=== PATIENT | female | born 1985 | race Caucasian/White ===

== ENCOUNTER 2017-01-10 05:20 | Inpatient (IN) | payer MEDICAID ==
[2017-01-08 11:56] LABS: BASOPHILS 0.8 % (0-2); EOSINOPHILS 3.6 % (0-7); HEMATOCRIT 37.3 % (36.0-48.0); HEMOGLOBIN 12.6 g/dL (12-16); MCH 30.5 pg (26.0-34.0); MCHC 33.8 g/dL (31.0-37.0); MCV 90.3 fL (80.0-100.0); MEAN PLATELET VOLUME 10.9 fL (7.4-10.4); MONOCYTES 9.8 % (2-11); NEUTROPHILS 66.8 % (40-80); RBC 4.13 10x6/uL (4.00-5.40); RDW 13.2 % (11.5-14.5); WBC 6.3 10x3/uL (4.8-10.8)
[2017-01-08 11:57] LABS: PLATELET COUNT 241 10x3/uL (130-400)
[2017-01-08 12:19] LABS: CALC OSMOLALITY 272 mosm/kg (275-300); CALCIUM 8.9 mg/dL (8.5-10.1); CARBON DIOXIDE 27.7 mmol/L (21.0-32.0); CHLORIDE - SERUM 102 mmol/L (98-107); CREATININE - SERUM 0.7 mg/dL (0.6-1.3); GLUCOSE 83 mg/dL (74-106); POTASSIUM - SERUM 4.2 mmol/L (3.5-5.1); SODIUM 137 mmol/L (136-145); UREA NITROGEN 12 mg/dL (7-18); eGFR NON AFRICAN AMERICAN > 90 mL/min (90-120)
[2017-01-10] VITALS (10 sets, daily range): BP systolic 117–147; BP diastolic 66–88; Ht 160 cm; Wt 77.3 kg
[~2017-01-10] VITALS: Ht 160 cm; Wt 77.3 kg
[~2017-01-10 05:20] MED LIST: HYDROCODON-ACE1 EAC7 PO; KLONOPIN0.5 MG PO; ROBAXIN500 MG PO
[2017-01-10] MEDS ORDERED: XANAX0.25 MG PO (06:34)
[2017-01-10 06:46] LABS: HCG URINE NEGATIVE (NEGATIVE)
--- NOTE | 2017-01-10 11:10 | NUR ---
REC' PT BACK FROM RECOVERY POST TOTAL ABD HYST. PT TRANSFERS SELF TO BED. PT MOANING AND COMPLAINING OF PAIN THAT SHE RATES 8-9/10. REPORT REC'D FROM RECOVERY NURSE THAT PT DID RECEIVE IV DILAUDID IN RECOVERY THAT HELPED W/PAIN MOMENTARILY. POST OP V/S BEGUN. PT HAS PIV TO RT AC AREA W/LR TO INFUSE AT 125ML/HR. ABD DRESSING C/D W/VISIBLE PINK LINE NOTED. NO APPARENT BLEEDING NOTED. NELSON CATH IN PLACE W/ APPROX 300ML BLUE COLORED URINE NOTED IN NELSON AND EMPTIED AT THIS TIME. SCD WRAPS IN PLACE BILATERALLY.CONNECTED TO PUMP AT THIS TIME. PUMP TURNED ON AND FUNCTIONING. PT REQUEST ICE CHIPS. ICE CHIPS SERVED.
--- NOTE | 2017-01-10 11:30 | NUR ---
ROUNDS MADE. PT STILL W/C/O PAIN. REASSURED PT TORADOL AND INSPECTOR AIDE WILL BEGIN TO EASE PAIN. FAMILY AT BEDSIDE.
--- NOTE | 2017-01-10 12:00 | NUR ---
FAMILY AT BEDSIDE. PT REPORTS SHE IS BEGINNING TO FEELS SOME WHAT BETTER. NO NEEDS VOICED AT THISTIME.
--- NOTE | 2017-01-10 12:24 | NUR ---
POST OP VITALS COMPLETED. PT STILL C/O ABD PAIN AND FEELING THE URGE TO VOID EVEN THOUGH NELSON CATH IN PLACE W/APPROX 125ML BLOOD URINE NOTED. CATHETER REPOSITIONED. PT STILL WITH C/O. PT USING MASTER ELECTRICIAN BUTTON FREQUENTLY. SIG OTHER AT BEDSIDE. PT'S BED LOW,SIDE RAILS UP X 2. CALL LIGHT AND MASTER ELECTRICIAN BUTTON ATPT'S SIDE.
--- NOTE | 2017-01-10 13:00 | NUR ---
THIS RN TO BEDSIDE. PT APPEARS TO BE MORE COMFORTABLE. REPORTS REPOSITIONING NELSON CATH HELPED W/DISCOMFORT. I.S. PROVIDED W/TEACHING. PT PERFORMS I.S. X 3 ABLE TO PULL 1500. PT COUGHS W/POOR EFFORT. REPOSITIONS SELF IN BED FROM SIDE TO SIDE. RETURNS TO SEMI DICKERSON'S POSITION. PT DENIES NAUSEA AT THIS TIME. ICE WATER SERVED PER PT REQUEST. BREATHSOUNDS CL\=, ABD SOFT, NON DISTENDED, BOWEL SOUNDS HYPOACTIVE X 4. PT DENIES PASSING FLATUS OF YET. PT REPORTS SHE HAS EDUCATED SELF ON PROCEDURE AND RECOVERY. AGREEABLE TO NURSING INTERVENTIONS. FAMILY AT BEDSIDE. PT'S BED LOW, SIDE RAILS UPX 2. CALL LIGHT AND RN PHYSICIAN OFFICE BUTTON AT PT'S SIDE.
--- NOTE | 2017-01-10 14:00 | NUR ---
ROUNDS MADE. PT AA&O X 4. PT AND SPOUSE REPORT PT HAS PERFORMED I.S. X 3 ABLE TO PULL 1500. REPORTS CLEARING THROAT. PT W/C/O LOWER BACK PAIN. WITH ASSISTANCE FROM SPOUSE PT ROLLS SIDE TO SIDE SO A PILLOW MAY BE PLACED BENEATH HER LOWER BACK FOR COMFORT. PT REPORTS PILLOW DOES HELP. PT W/C/O NAUSEA. ZOFRAN OFFERED. PT ACCEPTS. ZOFRAN GIVEN. SEE EMAR. PT INSTRUCTED TO NOT DRINK ANY MORE WATER UNTIL NAUSEA GOES AWAY. ICE CHIPS SERVED PER PT REQUEST. NELSON CATH DRAINING VIA GRAVITY AT BEDSIDE. SCD WRAPS REMAIN IN PLACE. CONNECTED TO PUMP. PUMP IS FUNCTIONING. PT DENIES FURTHER NEEDS AT THIS TIME. BED LOW, SIDE RAILS UP X 2. CALL LIGHT AND SENIOR MARKETING ASSOCIATE BUTTON AT PT'S SIDE. SPOUSE REMAINS AT PT'S SIDE.
--- NOTE | 2017-01-10 15:00 | NUR ---
THIS RN TO ROOM. PT RESTING QUIETLY W/EYES CLOSED IN SEMI DICKERSON'S. RESP EVEN AND AUDIBLE. PT AWAKENS EASILY. V/S TAKEN. SEE FLOWSHEET. PT PERFORMS I.S. X 3 WITH GOOD EFFORT. COUGHS TWICE WITH GOOD EFFORT. APPROX 160ML BLUE URINE NOTED IN UROMETER AND DUMPED TO NELSON BAG. PT REPORTS FEELING LIKE SHE WET. NANI AREA INSPECTED. SCANT AMOUNT OF SEROSANGUINOUS BLEEDING NOTED. PERICARE DONE. PT REQUEST TO WAIT TO CHANGE PAD UNTIL NEXT T/C/D. NO NEEDS VOICED AT THIS TIME. CALL LIGHT AND CNC PROGRAMMER BUTTON AT PT'S SIDE. PT REPORTS PUSHING CNC PROGRAMMER BUTTON FREQUENTLY.
--- NOTE | 2017-01-10 16:00 | NUR ---
TO BEDSIDE. PT AA&O X4. PT'S SPOUSE STANDING AT BEDSIDE ASSISTING PT W/T/C/D AND PERFORMING I.S. PT COUGHS WITH GOOD EFFORT. REPOSITIONS SELF UP IN BED. FRESH ICE CAP PROVIDED. NO NEEDS VOICED AT THIS TIME.
--- NOTE | 2017-01-10 17:00 | NUR ---
TO BEDSIDE. PT AWAKE W/SPOUSE AT BEDSIDE GETTING READY TO ASSIST PT W/T/C/D AND PERFORM I.S. PT DOES SO WHILE THIS RN AT BEDSIDE. ABLE TO PULL 1500 AND COUGHS W/GOOD EFFORT. PT'S PINL PAD CHANGED. PT REPOSITIONS SELF UP IN BED.
[2017-01-10 18:08] LABS: BASOPHILS 0 % (0-2); EOSINOPHILS 0 % (0-7); HEMATOCRIT 36.6 % (36.0-48.0); HEMOGLOBIN 12.1 g/dL (12-16); IMMATURE GRANULOCYTES 0.1 % (0-5); MCH 30.6 pg (26.0-34.0); MCHC 33.1 g/dL (31.0-37.0); MCV 92.4 fL (80.0-100.0); MEAN PLATELET VOLUME 10.6 fL (7.4-10.4); MONOCYTES 4.3 % (2-11); NEUTROPHILS 91.6 % (40-80); PLATELET COUNT 203 10x3/uL (130-400); RBC 3.96 10x6/uL (4.00-5.40); RDW 13.1 % (11.5-14.5); WBC 11.8 10x3/uL (4.8-10.8)
--- NOTE | 2017-01-10 18:10 | NUR ---
LAB TO ROOM TO DRAW SCHEDULED 1400 LABS. PT'S PAIN AND NEEDS ASSESSED. PT REPORTS ABD CRAMPING THAT SHE RATES 6/10 AND CONTINUES TO C/O NAUSEA. PT MEDICATED W/TORADOL 30MG SIVP AND ZOFRAN 4MG SIVP. PT PERFORMS I.S. X 3 ABLE TO PULL 1500. COUGHS WITH GOOD EFFORT AND TURNS SELF FROM SIDE TO SIDE. APPROX 150ML GREEN URINE NOTED IN UROMETER AND DUMPED TO NELSON BAG. APPROX 300ML URINE EMPTIED FROM NELSON AT THIS TIME. ICE CAP REMAINS FRESH AND ON PT'S ABD. SCD WRAPS REMAIN IN PLACE BILATERALLY. CONNECTED TO PUMP. PUMP REMAINS ON AND FUNCTIONING. NO FURTHER NEEDS VOICED. CALL LIGHT AND BILLER BUTTON AT PT'S SIDE.
[2017-01-10 18:22] LABS: CALC OSMOLALITY 275 mosm/kg (275-300); CALCIUM 8.4 mg/dL (8.5-10.1); CARBON DIOXIDE 23.8 mmol/L (21.0-32.0); CHLORIDE - SERUM 102 mmol/L (98-107); CREATININE - SERUM 0.7 mg/dL (0.6-1.3); GLUCOSE 122 mg/dL (74-106); POTASSIUM - SERUM 4.5 mmol/L (3.5-5.1); SODIUM 137 mmol/L (136-145); UREA NITROGEN 14 mg/dL (7-18); eGFR NON AFRICAN AMERICAN > 90 mL/min (90-120)
--- NOTE | 2017-01-10 19:20 | NUR ---
AWAKE DURING INITIAL ROUNDS. INTRODUCED SELF. V/S TAKEN. ASSESSMENT DONE. STATUS POST PACO TODAY. LOW TRANSVERSE INCISION WITH LIGHT DRESSING INTACT. IVF LR TO R ac AT 125cc/hr. ON DILAUDID SENIOR NETWORK ENGINEER FOR PAIN MANAGEMENT. NELSON CATH TO DRAINAGE BAG PATENT. SCD's TO BOTH LOWER EXTREMITIES TO PREVENT DVT. INCENTIVE SPIROMETER AT BEDSIDE. ENCOURAGED PT TO USE WITH DEEP BREATHING AND COUGHING EXCERCISES TO PREVENT PNEUMONIA. ICE BAG TO ABD INCISION. SPOUSE IN THE ROOM.
--- NOTE | 2017-01-10 21:00 | NUR ---
PT WANTING SLEEPIN PILL TONIGHT. DR. MCGUIRE NOTIFIED.
--- NOTE | 2017-01-10 21:29 | NUR ---
AMBIEN 5mg 1tab PO GIVEN FOR SLEEP. NEW IV BAG HUNG. NO NAUSEA OR VOMITING NOTED.
--- NOTE | 2017-01-10 21:42 | NUR ---
REFILLED ICE BAG TO ABD.
--- NOTE | 2017-01-10 22:55 | NUR ---
CALL LIGHT ANSWERED. PT STATES SHE STILL CAN'T SLEEP. PLACED A CALL TO DR. MCGUIRE. ORDERED TO D/C DILAUDID RELIGIOUS RITUAL SLAUGHTERER AND START ON ORAL ANALGESIC. ZOFRAN 4mg IV GIVEN PER PT'S REQUEST.
--- NOTE | 2017-01-10 23:07 | NUR ---
NORCO 10mg 1tab PO GIVEN FOR PAIN CONTROL. DILAUDID MERCHANDISE FOR RESALE PURCHASING AGENT PUMP TURNED OFF. IV PUMP CLEARED. NELSON CATH BAG EMPTIED. V/S STABLE.
--- NOTE | 2017-01-11 00:03 | NUR ---
PAIN LEVEL 8/10. TORADOL 30MG IV GIVEN FOR BREAKTHROUGH PAIN.
--- NOTE | 2017-01-11 02:58 | NUR ---
PAIN LEVEL "7"/10 FROM ABD INCISION. NORCO 10/325 1tab PO GIVEN FOR PAIN MANAGEMENT.
--- NOTE | 2017-01-11 04:00 | NUR ---
EYES CLOSED. LEFT UNDISTURBED. SPOUSE IN THE ROOM.
--- NOTE | 2017-01-11 05:56 | NUR ---
TORADOL 30mg IV GIVEN FOR BREAK-THROUGH PAIN. IV PUMP CLEARED. NELSON CATH BAG EMPTIED.
[2017-01-11 07:05] LABS: BASOPHILS 0.2 % (0-2); EOSINOPHILS 0.4 % (0-7); HEMATOCRIT 33.9 % (36.0-48.0); HEMOGLOBIN 11.3 g/dL (12-16); IMMATURE GRANULOCYTES 0.3 % (0-5); LYMPHOCYTES 16.5 % (15-50); MCH 30.5 pg (26.0-34.0); MCHC 33.3 g/dL (31.0-37.0); MCV 91.4 fL (80.0-100.0); MEAN PLATELET VOLUME 10.7 fL (7.4-10.4); MONOCYTES 7.5 % (2-11); NEUTROPHILS 75.1 % (40-80); PLATELET COUNT 189 10x3/uL (130-400); RBC 3.71 10x6/uL (4.00-5.40); RDW 13.1 % (11.5-14.5); WBC 11.3 10x3/uL (4.8-10.8)
--- NOTE | 2017-01-11 07:15 | NUR ---
DR MCGUIRE IS HERE TO SEE PT. HE STATES THAT SHE IS C/O ALOT OF PAIN. HE ORDERED PERCOCET 10/325MG. HE STATES AFTER FIRST DOSE I CAN REPEAT IT IN 3 HRS THEN GO TO EVERY 4 HRS. HE STATES THAT IF THIS DOES NOT CONTROL HER PAIN TO CALL HIM.
--- NOTE | 2017-01-11 07:15 | NUR ---
PT WAS RECEIVED LYING IN BED. SHE STATES THAT SHE IS HURTING. AT BEDSIDE. GEN- AWAKE AND ALERT. LUNGS- CLEAR. HEART- RRR. ABD- SOFT WITH TENDERNESS. BIKINI LINE INCISION WITH STERI STRIPS. CLEAN DRY AND INTACT. NELSON CATH INTACT AND SECURED TO R THIGH. URINE OUTPUT HAS BEEN GOOD. LE- SCD'S INTACT. IV PATENT R AC WITH LR AT 125 CC INFUSING. BED IS LOW. SIDE RAILS UP X 2 AND CALL LIGHT IN REACH.
[2017-01-11 07:30] VITALS: BP 134/81
[2017-01-11 07:52] LABS: CALC OSMOLALITY 275 mosm/kg (275-300); CALCIUM 8.2 mg/dL (8.5-10.1); CARBON DIOXIDE 26.8 mmol/L (21.0-32.0); CHLORIDE - SERUM 104 mmol/L (98-107); CREATININE - SERUM 0.7 mg/dL (0.6-1.3); GLUCOSE 84 mg/dL (74-106); SODIUM 139 mmol/L (136-145); UREA NITROGEN 11 mg/dL (7-18); eGFR NON AFRICAN AMERICAN > 90 mL/min (90-120)
--- NOTE | 2017-01-11 10:48 | NUR ---
PT REQUESTED PAIN MED. PAIN LEVEL IS A 5 . SHE STATES THAT THIS PAIN MED IS WORKING SO MUCH BETTER THAN NORCO. HER AND MOTHER ARE AT BEDSIDE.
--- NOTE | 2017-01-11 10:56 | NUR ---
PT ASKED THAT I NOT TAKE HER NELSON OUT AND GET HER UP RIGHT NOW. SHE STATES THAT HER WANTS TO BE HERE WHEN SHE GETS UP. HE WENT HOME TO TAKE A SHOWER.
--- NOTE | 2017-01-11 12:15 | NUR ---
HER IS GOING HOME TO SHOWER AND SHE IS GOING TO REST. OFFERS NO COMPLAINTS.
--- NOTE | 2017-01-11 14:00 | NUR ---
PTS NELSON REMOVED AND IV SALINE LOCKED. URINE OUTPUT WAS 1100 CC MATTHEW COLORED URINE.
--- NOTE | 2017-01-11 14:10 | NUR ---
PT REQUESTED MORE PAIN MED . DR MCGUIRE OK'D TO GIVE IT NOW.
--- NOTE | 2017-01-11 14:15 | NUR ---
PT REQUEST TO GET UP TO VOID. SHE VOIDED 150 CC MATTHEW COLORED URINE.
--- NOTE | 2017-01-11 14:40 | NUR ---
PT STILL HURTING SOME. GAVE TORADOL IN 9CC SALINE FLUSH. SALINE LOCK PATENT R AC.
--- NOTE | 2017-01-11 15:58 | NUR ---
PT IS UP AMBULATING IN HALLWAY WITH HER . SHE IS TOLERATING WELL. SHE VOIDED 350 CC MATTHEW COLORED URINE.
--- NOTE | 2017-01-11 18:14 | NUR ---
PT REQUEST PAIN MED. STATES PAIN IS A 5/10. GAVE HER OXYCODONE IR 10 MG
--- NOTE | 2017-01-11 19:06 | NUR ---
PT RECEIEVED SITTING UP IN BED WATCHING TV AT THIS TIME WITH FAMILY MEMBER AT BEDSIDE. DENIES NEEDS. BED LOW. PHONE AND CALL LIGHT IN REACH. SRX2.
--- NOTE | 2017-01-11 19:44 | NUR ---
PT LYING IN BED AAOX3 AT THIS TIME. VSS. PT RATES PAIN 4/10. HEART RRR. LUNG SOUNDS CLEAR BILATERALLY. BOWEL SOUNDS ACTIVE X4 QUADRENTS. ABDOMEN SOFT WITH TENDERNESS. LOW TRANSVERSE INCISION NOTED TO ABDOMEN WITH DOUGLAS. NO REDNESS, SWELLING, OR PURULENT DRAINAGE NOTED AT THIS TIME. NO BLOOD NOTED TO PER PAD. PEDAL PULSES EQUAL BILATERALLY. PT DENIES NEEDS AT THIS TIME. BED LOW. PHONE AND CALL LIGHT IN REACH. SRX2.
[2017-01-11 20:44] VITALS: BP 134/84
--- NOTE | 2017-01-11 22:15 | NUR ---
ADMINISTERED OXY-IR PO PER ORDERS AT THIS TIME FOR PAIN PT RATES 12/12. ADMINISTERED ZOFRAN IVP FOR PT C/O NAUSEA. ALSO ADMINISTERED AMBIEN PO TO HELP PT SLEEP. PT DENIES OTHER NEEDS. BED LOW. PHONE AND CALL LIGHT IN REACH. SRX2.
[2017-01-12 00:10] VITALS: BP 110/60
--- NOTE | 2017-01-12 00:10 | NUR ---
PT RESTING QUIETLY AT THIS TIME WITH EYES CLOSED. AROUSED EASILY. VSS. PT DENIES NEEDS. BED LOW. PHONE AND CALL LIGHT IN REACH. SRX2.
--- NOTE | 2017-01-12 02:20 | NUR ---
ZOFRAN IVP AND OXY-IR PO PER ORDERS GIVEN FOR PAIN PT RATES 11/12. PT DENIES OTHER NEEDS. GETTING UP TO USE RESTROOM AT THIS TIME. BED LOW. PHONE AND CALL LIGHT IN REACH. SRX2.
[2017-01-12 03:24] VITALS: BP 118/60
--- NOTE | 2017-01-12 03:24 | NUR ---
PT RESTING QUIETLY IN BED WITH EYES CLOSED. AROUSED EASILY. VSS. PT DENIES NEEDS. BED LOW. PHONE AND CALL LIGHT IN REACH. SRX2.
--- NOTE | 2017-01-12 05:45 | NUR ---
PT RESTING QUIETLY AT THIS TIME WITH EYES CLOSED. RESPIRATIONS EVEN, NON-LABORED. NO ACUTE DISTRESS NOTED AT THIS TIME. BED LOW. PHONE AND CALL LIGHT IN REACH. SRX2.
--- NOTE | 2017-01-12 06:27 | NUR ---
ADMINISTERED ZOFRAN IVP AND OXY-IR PO PER ORDERS FOR PAIN PT RATES /. PT DENIES OTHER NEEDS. BED LOW. PHONE AND CALL LIGHT IN REACH. SRX2.
[2017-01-12 07:30] VITALS: BP 124/71
--- NOTE | 2017-01-12 07:30 | NUR ---
PT WAS RECEIVED THIS AM LYING IN BED. SHE HAS ALREADY BEEN UP AMBULATING THIS AM. GEN- AWAKE AND ALERT. LUNGS- CLEAR. HEART- RRR. ABD- SOFT, WITH TENDERNESS. INCISION- LOW TRANSVERSE WITH DOUGLAS INTACT. CLEAN AND DRY. NO EXT- NO EDEMA NOTED. PT HAS BEEN AMBULATORY SO SHE DOES NOT HAVE SCD'S ON. SALINE LOCK R AC. PATENT. BED IS LOW, SIDE RAILS UP X 2 AND CALL LIGHT IN REACH.
--- NOTE | 2017-01-12 09:00 | NUR ---
PT IS UP AMBULATING IN HALLWAY. STATES THAT SHE IS SORE, BUT OTHERWISE IS OK. SHE IS WALKING WITH HER .
--- NOTE | 2017-01-12 10:30 | NUR ---
PT REQUEST PAIN MEDICATION. GIVEN. SHE ASKED ABOUT TORADOL. MOTRIN WAS ORDERED 600MG Q 6HR. ALSO GIVEN.
--- NOTE | 2017-01-12 11:24 | NUR ---
PT STATES THAT PAIN IS GETTING BETTER. SHE RATES IT AT A 4. SHE IS GOING TO TRY TO REST.
--- NOTE | 2017-01-12 12:30 | NUR ---
PT IS UP WALKING IN HALLWAY WITH HER . SHE HAS TOLERATED WELL. STATES HER PAIN IS ABOUT A 3 NOW.
--- NOTE | 2017-01-12 13:27 | NUR ---
DC'D SALINE LOCK R AC. TIP INTACT. PRESSURE DRESSING APPLIED.
[2017-01-12] MEDS ORDERED: PERCOCET 10/3251 TA1 PO (13:41)
[2017-01-12] MEDS ORDERED: IBUPROFEN600 MG PO (13:41)
--- NOTE | 2017-01-12 13:58 | NUR ---
HER TOOK PRESCRIPTIONS TO BE FILLED PRIOR TO DISCHARGE. PT IS SLEEPING.
--- NOTE | 2017-01-12 14:30 | NUR ---
PTS RETURNED AND THEY ARE READY FOR DISCHARGE. DISCHARGE INSTRUCTIONS GIVEN. PT WILL CALL DR MCGUIRE'S OFFICE FOR AN APPT FOR STAPLE REMOVAL IN 1 WEEK. SHE ALREADY HAS HER 4 WEEK APPT. PT WAS ESCORTED TO HER CAR BECAUSE SHE PREFERRED TO WALK AND REFUSED WHEELCHAIR. SHE TOLERATED THIS WELL.
== END 2017-01-12 14:30 | disposition home or self-care (01) | DRG 743 ==
LOC: D.WS 05:20 → D.SDCHOLD 05:20 → D.WS 10:23
PROVIDERS: ADMIT Obstetrics & Gynecology
PROC: 0UT70ZZ Resection of Bilateral Fallopian Tubes, Open Approach (ICD-10-PCS; 2017-01-10)
PROC: 0UT90ZZ Resection of Uterus, Open Approach (ICD-10-PCS; principal; 2017-01-10 07:30)
DX: N80.0 Endometriosis of uterus (principal); N73.6 Female pelvic peritoneal adhesions (postinfective); F41.9 Anxiety disorder, unspecified; Z72.0 Tobacco use